=== PATIENT | female | born 1955 | race Two or more races ===

== ENCOUNTER 2024-09-17 14:28 | Outpatient (RCR) | payer OTHER, SELFPAY ==
--- NOTE | 2024-09-17 14:45 | PT.OIERPT ---
PT OP Initial Eval Patient Information Outpatient Physical Therapy Treatment Date: 09/17/24 Visit Reasons: bilateral wrist pain Medical Diagnosis: M25.532 M25.531 R20.2 Treatment Dx #1: B wrist pain Start of Care: 09/17/24 Date of Onset: May 2024 Smoking Status Smoking Status: Never smoker Initial Assessment Subjective: Pt is 68 yr old female who c/o B wrist pain L>R. Increased pain in L wrist points to the ulnar styloid process as site pain. Increased pain with driving and turning the hand, pushing against something to stand up. The R wrist is not hurting today but the L hurts every day. She says she has fallen several times and last time was 2-4 months ago. She denies numbness, but there is a sharp pain. 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 Pt may need skilled therapy to continue to assess and meet functional goals, difficult to determine rehab potential. 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 Ind with HEP 2. Pt will tolerate driving x30 mins without L wrist pain 3. Pt will tolerate HH chores x30 mins with <=3/10 L wrist pain Treatment Plan ? 1. Manual therapy ? 2. Therex ? 3. Modalities as indicated, moist heat, ice, estim Frequency and Duration: 1-2x a week for up to 12 visits if progressing with goals Certification Dates: 09/17/24 to 12/14/24 Procedure Charges OP PT Eval Mod Complex 30 minutes: Yes
== END 2024-10-09 23:59 | disposition home or self-care (01) ==
LOC: CPTX 14:28
DX: M25.532 Pain in left wrist (principal); M25.531 Pain in right wrist; R20.2 Paresthesia of skin
CPT/HCPCS: 97162

== ENCOUNTER → 2025-02-02 | Outpatient (BNVA) | payer OTHER, SELFPAY | END | disposition home or self-care (01) | PROVIDERS: PCP Family Medicine; Referring Provider Family Medicine; Visit Provider Urology | DX: G89.4 Chronic pain syndrome (principal); R10.2 Pelvic and perineal pain; R39.198 Other difficulties with micturition; N81.10 Cystocele, unspecified; N81.6 Rectocele; N32.81 Overactive bladder | CPT/HCPCS: 81003; 99212; G0463 ==

== ENCOUNTER → 2025-04-05 | Outpatient (BNVA) | payer OTHER, SELFPAY | END | disposition home or self-care (01) | PROVIDERS: PCP Family Medicine; Referring Provider Family Medicine; Visit Provider Urology | DX: N35.92 Unspecified urethral stricture, female (principal); Z87.440 Personal history of urinary (tract) infections | CPT/HCPCS: 52281; 81003; 96372; A4217; A4649; C1894; J3260; A9270 ==